=== PATIENT | male | born 1950 | race Caucasian/White ===

== ENCOUNTER → 2022-12-30 | Outpatient (CLI) | payer MEDICARE, OTHER ==
[~2022-12-30] MED LIST: ASPIR 8181 MG; BYSTOLIC5 MG PO; EFFIENT10 MG PO; LIPITOR20 MG PO; LISINOPRIL10 MG PO; PLAVIX75 MG PO
== END ==
LOC: DX 09:36
PROVIDERS: ATTEND Family Medicine
DX: M85.88 Other specified disorders of bone density and structure, other site (principal)
CPT/HCPCS: 77080